=== PATIENT | male | born 1995 | race African-American/Black ===

== ENCOUNTER 2022-08-04 17:46 | Emergency (ER) | payer MEDICAID, OTHER ==
[~2022-08-04] VITALS: Ht 205.7 cm; Wt 96.4 kg
[2022-08-04 18:04] VITALS: BP 131/74; PULSE 81; RESP 16; TEMP 98.7; O2SAT 65
[2022-08-04] MEDS ORDERED: IBUP-2028 MT (18:46)
== END 2022-08-04 19:30 | disposition home or self-care (01) ==
LOC: ER 17:46
DX: M79.641 Pain in right hand (principal)
CPT/HCPCS: 73130; 99283

== ENCOUNTER 2025-02-02 01:07 | Emergency (ER) | payer MEDICAID ==
[~2025-02-02] VITALS: Ht 203.2 cm; Wt 94.0 kg
[~2025-02-02 01:07] MED LIST: IBUP-2028 MT
[2025-02-02 01:14] VITALS: O2SAT 98
[2025-02-02] MEDS ORDERED: LIDOCAINE HCL 1% 20ML VIAL INFIL ONE (02:15)
[2025-02-02] MEDS: TETANUS, DIPHTHERIA, PERTUSSIS VAC/PF 0.5ML (>10YR OLD) IM ONE (03:10)
[2025-02-02] MEDS: ACETAMINOPHEN 500MG TABLET PO ONE (03:11)
[2025-02-02] MEDS: BACITRACIN ZINC OINT UDPKT TOP ONE (03:11)
[2025-02-02] MEDS ORDERED: BO1 TP (03:56)
[2025-02-02 04:06] VITALS: BP 98/64; PULSE 72; RESP 18; TEMP 36.8; O2SAT 100
== END 2025-02-02 04:12 | disposition home or self-care (01) ==
LOC: ER 01:07
DX: S60.418A Abrasion of other finger, initial encounter (principal); W25.XXXA Contact with sharp glass, initial encounter; Y93.89 Activity, other specified; Y92.89 Other specified places as the place of occurrence of the external cause; Y99.8 Other external cause status
CPT/HCPCS: 99283; 73130; J2003; 90715